=== PATIENT | male | born 1940 | race Caucasian/White ===

== ENCOUNTER 2018-04-13 17:41 | Inpatient (IN) | payer MEDICARE, MEDICAID ==
[2018-04-13] MEDS ORDERED: Sodium Chloride 0.9% 10 ML Syringe FLUSH PRN (17:53)
[2018-04-13] MEDS ORDERED: Sodium Chloride 0.9% 1,000 ML IV ONE (17:54)
[2018-04-13] MEDS ORDERED: cefTRIAXone 1 GM Vial IVPUSH ONE (18:14)
[2018-04-13] MEDS ORDERED: Albuterol/Ipratropium 3.0-0.5 MG/3 ML Neb Soln NEB ONE (18:14)
[2018-04-13 18:48] LABS: CHLORIDE,CL 101 mmol/L (98-107); SODIUM,NA 137 mmol/L (136-145)
--- NOTE | 2018-04-13 18:59 | EDM.PDOC ---
ED HPI GENERAL MEDICAL PROBLEM - General Chief Complaint: Respiratory Problem Stated Complaint: SOB; productive cough; fevers Time Seen by Provider: 04/13/18 17:43 Source of Information: Reports: Patient, Family, RN, RN Notes Reviewed History Limitations: Reports: No Limitations - History of Present Illness INITIAL COMMENTS - FREE TEXT/NARRATIVE: Patient presents the emergency room at [facility] with a one-week history of fevers, chills, shortness of breath, and productive cough. The patient does have a history of pneumonias in the past. The patient's most recent diagnosis was November 2017. The patient states that his symptoms have progressively gotten worse over the past couple of days. The patient states that he brought himself in because he is feeling more weak and more short of breath. No close contacts or family members with similar symptoms. The patient is trying to stay well-hydrated with good by mouth fluid intake. The patient has not tried any [id number] cold and flu medications. The patient denies any focal neurological deficits. The patient denies any abdominal pain. The patient has not had any nausea or vomiting. No diarrhea. The patient denies any chest pain. Onset: Gradual - Related Data Allergies Allergy/AdvReac Type Severity Reaction Status Date / Time No Known Allergies Allergy Verified 04/13/18 18:14 Home Meds: Home Meds Multivitamin [Multivitamins] 1 each PO DAILY 04/13/18 [History] ED ROS GENERAL - Review of Systems Review Of Systems: See Below Constitutional: Reports: Fever, Chills, Weakness, Decreased Appetite HEENT: Reports: No Symptoms Respiratory: Reports: Shortness of Breath, Wheezing, Cough, Sputum Cardiovascular: Denies: Chest Pain, Palpitations GI/Abdominal: Denies: Abdominal Pain, Nausea, Vomiting Skin: Reports: No Symptoms Neurological: Reports: No Symptoms. Denies: Dizziness, Headache ED EXAM, GENERAL - Physical Exam Exam: See Below Exam Limited By: No Limitations General Appearance: Alert, No Apparent Distress Eye Exam: Bilateral Eye: Normal Inspection, PERRL Neck: Supple Respiratory/Chest: No Respiratory Distress, Rhonchi, Wheezing Cardiovascular: Normal Peripheral Pulses, Regular Rate, Rhythm Peripheral Pulses: 2+: Radial (L), Radial (R) GI/Abdominal: Normal Bowel Sounds, Soft, Non-Tender Neurological: Alert, Oriented Skin Exam: Warm, Dry, Intact, Normal Color EKG INTERPRETATION EKG Date: 04/13/18 Time: 17:59 Rhythm: Other Rate (Beats/Min): 120 [place]: Normal P-Wave: Present QRS: Normal ST-T: Normal QT: Normal IL/PQ Interval: 0.17 Comparison: NA - No Prior EKG EKG Interpretation Comments: 1. Sinus Tachycardia 2. Left anterior fascicular block 3. Possible Anterior [place], probably old Course - Orders/Labs/Meds Orders: Active Orders 24 hr Category Date Time Status EKG 12 Lead [EKG Documentation Completion] [RC] STAT Care 04/13/18 17:53 Active RT Aerosol Therapy [RC] ASDIRECTED Care 04/13/18 18:14 Active Chest 2V [CR] Stat Exams 04/13/18 17:53 Taken CULTURE BLOOD [BC] Stat Lab 04/13/18 18:12 Received CULTURE BLOOD [BC] Stat Lab 04/13/18 18:19 Received INFLUENZA A+B AG SCREEN [RM] Stat Lab 04/13/18 18:51 Ordered UA W/MICROSCOPIC [URIN] Stat Lab 04/13/18 17:53 Ordered Sodium Chloride 0.9% [Saline Flush] Med 04/13/18 17:53 Active 10 ml FLUSH ASDIRECTED PRN Blood Culture x2 Reflex Set [OM.PC] Stat Oth 04/13/18 17:52 Ordered Peripheral IV Insertion Adult [OM.PC] Routine Oth 04/13/18 17:53 Ordered Medication Orders Sodium Chloride (Saline Flush) 10 ml FLUSH ASDIRECTED PRN PRN Reason: Keep Vein Open Labs: Laboratory Tests 04/13/18 04/13/18 04/13/18 Range/Units 18:12 18:12 18:12 WBC 17.4 H (4.0-10.0) x10^3/uL RBC 4.81 (4.5-6.0) x10^6/uL Hgb 15.2 (14.0-18.0) g/dL Hct 44.5 (40.0-52.0) % MCV 92.5 (78.0-93.0) fL MCH 31.6 (26.0-32.0) pg MCHC 34.2 (32.0-36.0) g/dL RDW Coeff of Mirna 14.2 (10.0-15.0) % Plt Count 227 (130-400) x10^3/uL Add Manual Diff Yes Neutrophils % (Manual) 89 H (50-80) % Band Neutrophils % 3 (0-6) % Lymphocytes % (Manual) 3 L (25-50) % Monocytes % (Manual) 5 (2-11) % Vacuolated Monocytes 1+ slight H Toxic Granulation Rare Platelet Estimate Adequate Sodium 137 (136-145) mmol/L Potassium 3.7 (3.5-5.1) mmol/L Chloride 101 (98-107) mmol/L Carbon Dioxide 22 (21-32) mmol/L Anion Gap 17.7 (10-20) mmol/L BUN 13 (7-18) mg/dL Creatinine 1.1 (0.70-1.30) mg/dL Est Cr Clr Drug Dosing TNP Estimated GFR (MDRD) > 60 Glucose 153 H (74-106) mg/dL Lactic Acid 1.2 (0.4-2.0) mmol/L Calcium 8.7 (8.5-10.1) mg/dL Corrected Calcium 9.26 (8.5-10.1) mg/dL Total Bilirubin 0.9 (0.2-1.0) mg/dL AST 12 L (15-37) U/L ALT 18 (16-63) U/L Alkaline Phosphatase 109 (46-116) U/L C-Reactive Protein 15.5 H (<=0.9) mg/dL Total Protein 8.5 H (6.4-8.2) g/dL Albumin 3.3 L (3.4-5.0) g/dL Globulin 5.2 Albumin/Globulin Ratio 0.63 Meds: Medications Generic Name Dose Route Start Last Admin Trade Name Freq PRN Reason Stop Dose Admin Sodium Chloride 10 ml 04/13/18 17:53 Saline Flush FLUSH ASDIRECTED PRN Keep Vein Open Discontinued Medications Generic Name Dose Route Start Last Admin Trade Name Freq PRN Reason Stop Dose Admin Albuterol/Ipratropium 3 ml 04/13/18 18:14 04/13/18 18:22 Duoneb 3.0-0.5 Mg/3 Ml NEB 04/13/18 18:15 3 ml ONETIME ONE Administration Ceftriaxone Sodium 1 gm 04/13/18 18:14 04/13/18 18:22 Rocephin IVPUSH 04/13/18 18:15 1 gm ONETIME ONE Administration Sodium Chloride 1,000 mls @ 999 mls/hr 04/13/18 17:54 04/13/18 18:21 Normal Saline IV 04/13/18 18:54 999 mls/hr ONETIME ONE Administration - Radiology Interpretation Free Text/Narrative:: CXR: Right upper lobe infiltrate See scanned report in EMR Departure - Departure Time of Disposition: 19:10 Disposition: Admitted As Inpatient 68 Condition: Good Clinical Impression: Pneumonia Qualifiers: Pneumonia type: due to unspecified organism Laterality: right Lung location: upper lobe of lung Qualified Code(s): J18.1 - Lobar pneumonia, unspecified organism - Discharge Information ED Communication - ED Communication Date/Time Date: 04/13/18 Time Called: 19:02 - Discussed Case With (1) Discussed Case With (1): Admitting Provider Person/s Notified (1): Iram Ruiz - Conversation Summary Admitting Provider Agreed to Patient's Admission: Yes Patient Aware of Amendments fo Care Plan: Yes - Problem List Review Problem List Initiated/Reviewed/Updated: Yes - My Orders Last 24 Hours: My Active Orders 04/13/18 17:52 Blood Culture x2 Reflex Set [OM.PC] Stat 04/13/18 17:53 EKG 12 Lead [EKG Documentation Completion] [RC] STAT Chest 2V [CR] Stat UA W/MICROSCOPIC [URIN] Stat Sodium Chloride 0.9% [Saline Flush] 10 ml FLUSH ASDIRECTED PRN Peripheral IV Insertion Adult [OM.PC] Routine 04/13/18 18:12 CULTURE BLOOD [BC] Stat 04/13/18 18:14 RT Aerosol Therapy [RC] ASDIRECTED 04/13/18 18:19 CULTURE BLOOD [BC] Stat 04/13/18 18:51 INFLUENZA A+B AG SCREEN [RM] Stat - Assessment/Plan Last 24 Hours: My Active Orders 04/13/18 17:52 Blood Culture x2 Reflex Set [OM.PC] Stat 04/13/18 17:53 EKG 12 Lead [EKG Documentation Completion] [RC] STAT Chest 2V [CR] Stat UA W/MICROSCOPIC [URIN] Stat Sodium Chloride 0.9% [Saline Flush] 10 ml FLUSH ASDIRECTED PRN Peripheral IV Insertion Adult [OM.PC] Routine 04/13/18 18:12 CULTURE BLOOD [BC] Stat 04/13/18 18:14 RT Aerosol Therapy [RC] ASDIRECTED 04/13/18 18:19 CULTURE BLOOD [BC] Stat 04/13/18 18:51 INFLUENZA A+B AG SCREEN [RM] Stat Assessment:: RUL infiltrate Plan: Case discussed with Dr. Ruiz. Patient will be admitted acute for RUL infiltrate. Patient signed out to Dr. Ruiz.
[2018-04-13] MEDS ORDERED: Albuterol/Ipratropium 3.0-0.5 MG/3 ML Neb Soln NEB PRN (20:21)
[2018-04-13] MEDS ORDERED: Acetaminophen 325 MG Tab PO PRN (20:21)
[2018-04-13] MEDS ORDERED: Lactated Ringers 1,000 ML IV SCH (20:30)
[2018-04-13] MEDS ORDERED: cefTRIAXone 1 GM Vial IVPUSH SCH (20:30)
[2018-04-13] MEDS ORDERED: Benzonatate 100 MG Cap PO PRN (20:34)
[2018-04-13] MEDS ORDERED: guaiFENesin 600 MG Tab.ER PO PRN (20:35)
[2018-04-13] MEDS ORDERED: Sodium Chloride 0.9% 1,000 ML IV SCH ×2 (20:45→21:04)
[2018-04-13] MEDS ORDERED: Sodium Chloride 0.9% 500 ML IV SCH (20:45)
[2018-04-13] MEDS: Enoxaparin 40 MG/0.4 ML Syringe SUBCUT SCH (21:09)
[2018-04-13] MEDS: Azithromycin 250 MG Tab PO SCH (21:09)
[2018-04-13] MEDS: Sodium Chloride 0.9% 1,000 ML IV SCH (21:13)
[2018-04-13] MEDS: Magnesium Oxide 400 MG Tab PO SCH (22:51)
--- NOTE | 2018-04-14 04:18 | HP ---
CHIEF COMPLAINT: Cough. HISTORY OF PRESENT ILLNESS: The patient is a 77-year-old male, who presented to the emergency room. He has been feeling ill for the past few weeks, just not much energy. He had a productive cough several days ago, but now it started to be not as productive, but he started to have more wheezing in his chest. He had been taking some Mucinex for coughing at home. Cough had been productive, but now less productive. He has not been eating as much. He actually did start to feel somewhat confused due to probably not eating as well. The patient does not have a history of any chronic health problems right now as he is not on any chronic prescription medications. He has seen KAYY Parnell, in the clinic for health care. The patient had had a bout with influenza in November that had resolved, but otherwise he prides himself on feeling quite healthy generally. MEDICATIONS: He is currently on Naprosyn 220 mg 1 pill twice a day as needed; low-dose aspirin 1 pill daily; multivitamin 1 pill a day; vitamin C 250 mg 1 pill daily; beta-carotene, I believe 1000 mg daily; and Tessalon 100 mg 1 pill every 4 hours as needed for cough. ALLERGIES: None known. PAST MEDICAL HISTORY: He has had laryngeal cancer in about 1989. He had had elevated blood pressure without diagnosis of hypertension. PAST SURGICAL HISTORY: He had cataract surgery in 2011 and 2013. FAMILY MEDICAL HISTORY: His father had heart problems. Mother in a motor vehicle accident. Siblings have had many types of cancer, prostate cancer as well as metastatic cancer. SOCIAL HISTORY: He is in 2017. His had had metastatic breast cancer. He is currently retired. 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 He likes to stay active with still doing tinkering and yard work. He does not currently smoke. He quit smoking about 20 years ago. Prior to that, he had smoked a pack a day of cigarettes. Alcohol use, he does not consume since getting . REVIEW OF SYSTEMS: Generally fairly healthy. He has not had any weight loss. No change in any skin lesions. No headaches. No double or blurry vision. Has felt weak. Did get confused recently. Not much appetite. No diarrhea. No vomiting. No problems with urination. No burning with urination. No incontinence. No one- sided weakness or numbness. No bruising. No enlarged lymph glands. No problems with bleeding. OBJECTIVE: Vital Signs: The patient's temperature is 38.7, pulse is 126, blood pressure is 127/85, respiratory rate 22, and oxygen level on room air is 92%. Skin: [place], warm, and dry. HEENT: His head is atraumatic. Pupils are equal and reactive to light. Pharynx has slightly dry mucous membranes. Neck: No anterior cervical lymphadenopathy or thyromegaly. No carotid bruits. Heart: Tachycardic. Lungs: Revealed some inspiratory wheezes on bases bilaterally. He is able to talk without becoming short of breath. Abdomen: Bowel sounds present. Soft, nontender. No hepatosplenomegaly. Rectal and Genital: Deferred. Extremities: No edema. Neurologic: He is weak systemically, but is able to lift his hands above his head symmetrically. Cranial nerves 2 through 12 are intact. He does wear glasses. He is oriented x3. Psych: His mood appears happy. LABORATORY DATA: Work [place], his white blood cell count is elevated at 17.4 with 89 segs, 3 bands, 3 lymphocytes, 5 monocytes; hemoglobin is 15.2; platelets are 222. Sodium is 137, potassium 3.7, creatinine 1.1, BUN 13, GFR greater than 60, glucose 153. Lactic acid was 1.2. CRP was 15.5. His AST 12, ALT 18, and albumin 3.3. Influenza was negative. Chest x-ray shows right upper lobe infiltrate with flattening of the diaphragms with increased AP diameter, preliminary report. Radiologist read that he has right upper lobe infiltrate; bilateral hilar prominence, appears chronic; moderate chronic hyperinflation was noted. EKG shows sinus tachycardia, rate 120; left anterior fascicular block; possible anterior infarct, probably old; abnormal EKG. It is noted that he did have a previous left bundle-branch block in 2011. The patient when seen in the emergency room was given 1 g of IV Rocephin, was given some IV fluids, given a DuoNeb. He started to feel much better immediately; however, his pulse did still continue to stay tachycardic. IMPRESSION: 1. Right upper lobe pneumonia, community acquired. 2. Tachycardia, multifactorial. Most likely due to dehydration, but probably fever. 3. Probable underlying chronic obstructive pulmonary disease. 4. History of throat cancer. 5. History of elevated blood pressure, but not considered hypertension. 6. Weakness. 7. Confusion, which is clearing. PLAN: The patient will be admitted to Acute Care. He will be placed on continued Rocephin use, as well as we will add Zithromax. The patient will receive Lovenox for DVT prophylaxis. We will give IV hydration for fluid resuscitation. We will monitor his heart with telemetry. We will check serial troponins on him as well as serial lactic acids on him. The patient is code level 1 status. This was discussed with the patient. The patient will receive some Mucinex p.r.n. for mucolytics as well as the DuoNeb treatments, encouraged use of those. We will have Physical Therapy assess the patient; however, they are not available until the next 3 days. I do anticipate the patient to hopefully just a 2 to 3 days acute care and then be able to be returned to his home environment. The patient, however, has not had a complete physical for some time. Also noted vaccination status; the patient has not had Pneumovax vaccination of Prevnar 13. He has not had any colonoscopy checking. He has not had a lipid screen. He is overdue for tetanus booster. He does need to have scoring for lung screen evaluation. The patient will follow up with KAYY Parnell, in the clinic upon discharge from the hospital. GM04/13/2018 20:52:37 MODL: 04/14/2018 03:40:45 /[id number]
[2018-04-14] MEDS: Sodium Chloride 0.9% 1,000 ML IV SCH (05:28)
[2018-04-14 08:34] LABS: CHLORIDE,CL 106 mmol/L (98-107); SODIUM,NA 141 mmol/L (136-145)
[2018-04-14] MEDS: Aspirin 81 MG Tab.Chew PO SCH (08:54)
[2018-04-14] MEDS: Multivitamin, Stress Formula with Zinc Tab PO SCH (08:55)
[2018-04-14] MEDS: Ascorbic Acid 500 MG Tab PO SCH (08:55)
[2018-04-14] MEDS: Azithromycin 250 MG Tab PO SCH (08:56)
[2018-04-14] MEDS: Magnesium Oxide 400 MG Tab PO SCH (08:56)
[2018-04-14] MEDS ORDERED: Sodium Chloride 0.9% 10 ML Syringe FLUSH PRN (09:28)
--- NOTE | 2018-04-14 10:00 | PN ---
Progress Note for GAUDENCIO PAIZ Date: 04/14/2018 Room #: VM.204 SUBJECTIVE: The patient is feeling better. He has had little bit of productive cough. He has had a cough prior to coming in the morning. He has also had a rash on his left foot that he forgot about last night. He denies any chest pain. It was noted on his lab work that was done last evening that troponin that was checked did come back elevated, so then we ran a troponin on his ER lab work and that also was elevated, which may be more likely due to his tachycardia, not really cardiac problems. The patient's appetite is feeling better. He is feeling more mentally sharp. OBJECTIVE: Vital Signs: His weight is 101.5, which is same from yesterday. Temperature is 37.0, which has come down. His pulse is down to 85, blood pressure is 114/77, respiratory rate 19, and sats are 97 on 3 L. General: Objectively, he appears alert and calm. Skin: On the dorsum of his left foot, he has a scaly type lesion, 1 cm in size. Heart: Regular rate and rhythm. Lungs: Do reveal some stray wheezes on bases. Abdomen: Obese, soft. Lower Extremities: No edema. LABORATORY DATA: Labs today shows his white blood cell count has improved to 14.0, hemoglobin 13.1, platelets 176, with 77 segs, and 3 bands. Sodium 141, potassium same at 3.7, creatinine 1.1. GFR greater than 60, glucose 103. Lactic acid came back normal as well at 0.8. Magnesium was low yesterday and repeat check level 1.6. LFTs stayed normal. Troponin this morning 0.063. Urinalysis came back normal. IMPRESSION: 1. Right upper lobe pneumonia. 2. Chronic obstructive pulmonary disease exacerbation. 3. Hypokalemia. 4. Tachycardia secondary to dehydration. 5. Elevated troponin, suspect secondary to tachycardia. 6. Left anterior fascicular block. PLAN: His EKG this morning does look better with sinus rhythm with sinus arrhythmia. We will saline lock his IV fluids for right now. We will place him on scheduled Combivent Respimat inhaler. He can have p.r.n. neb treatments. We will check peak flow meter testing on the patient. He may need diuretic possibly. We will continue the Rocephin, as well as the Zithromax for him, and we will try to get him weaned off oxygen. GM04/14/2018 09:37:55 MODL: 04/14/2018 09:52:59 /[id number]
[2018-04-14] MEDS ORDERED: Albuterol 0.083% 2.5 MG/3 ML Neb Soln NEB PRN (10:18)
[2018-04-14] MEDS: Enoxaparin 40 MG/0.4 ML Syringe SUBCUT SCH (11:31)
[2018-04-14] MEDS: Terbinafine 1% Crm 30 GM Tube TOP SCH (11:35)
[2018-04-14] MEDS: Albuterol/Ipratropium 3.0-0.5 MG/3 ML Neb Soln INH SCH ×3 (11:36→19:49)
[2018-04-14] MEDS ORDERED: cefTRIAXone 1 GM Vial IVPUSH SCH (17:00)
[2018-04-14] MEDS ORDERED: Enoxaparin 40 MG/0.4 ML Syringe SUBCUT SCH (20:00)
[2018-04-15] MEDS: Albuterol/Ipratropium 3.0-0.5 MG/3 ML Neb Soln INH SCH ×2 (07:12→12:45)
[2018-04-15 08:16] LABS: CHLORIDE,CL 106 mmol/L (98-107); SODIUM,NA 141 mmol/L (136-145)
[2018-04-15] MEDS: Terbinafine 1% Crm 30 GM Tube TOP SCH (08:50)
[2018-04-15] MEDS: Ascorbic Acid 500 MG Tab PO SCH (08:50)
[2018-04-15] MEDS: Aspirin 81 MG Tab.Chew PO SCH (08:50)
[2018-04-15] MEDS: Multivitamin, Stress Formula with Zinc Tab PO SCH (08:54)
[2018-04-15] MEDS: Magnesium Oxide 400 MG Tab PO SCH (08:54)
[2018-04-15] MEDS: Azithromycin 250 MG Tab PO SCH (08:54)
[2018-04-15] MEDS ORDERED: Albuterol/Ipratropium 3.0-0.5 MG/3 ML Neb Soln INH SCH (11:10)
[2018-04-15] MEDS ORDERED: Cefdinir 300 MG Cap PO SCH (11:15)
--- NOTE | 2018-04-15 11:27 | PN ---
Progress Note for GAUDENCIO PAIZ Date: 04/15/2018 Room #: VM.204 SUBJECTIVE: The patient is feeling better today. He has been able to go without oxygen. His pulse has been in the 80s. The patient otherwise does feel that he is able to go home. OBJECTIVE: Vital Signs: His temperature is 37.2, weight is 100.9, which is down 0.4 pounds from a 0.4 kg on admission; blood pressure is 129/77; respiratory rate 18; sats are 94% on room air. General: Objectively, he is appearing much better. Heart: Regular rate and rhythm. Lungs: Do have some fine inspiratory wheezes on bases. Abdomen: Soft. Extremities: No edema. Neurologic: He is alert, pleasant to visit with. LABORATORY STUDIES: His sputum culture is showing alpha-hemolytic strep. White blood cell count has improved to 11.7, hemoglobin is 13.5, platelets are 211, with 79 segs, 6 bands, 13 lymphocytes. Sodium is 141, potassium 3.6, creatinine 0.9, GFR greater than 60. Magnesium is up to 1.9. CRP has gone up to 18.1. IMPRESSION: 1. Alpha-hemolytic streptococcal pneumonia. 2. Chronic obstructive pulmonary disease exacerbation. 3. Hypoxemia, improved. 4. Tachycardia, improved. 5. Hypokalemia, improved. 6. Hypomagnesemia, improved. 7. Elevated troponins, which has resolved. PLAN: We will switch him over from nebulizer to an MDI inhaler. We will start him on some oral steroids. We will switch him from Rocephin to Omnicef. We will discharge home later today. His daughter is present in the room and does feel comfortable with him going. He will follow up with Jazz Do in the clinic in a week's time. GM04/15/2018 11:08:27 MODL: 04/15/2018 11:20:56 /[id number]
[2018-04-15] MEDS ORDERED: predniSONE 20 MG Tab PO ONE (12:57)
--- NOTE | 2018-04-15 13:12 | DISCH ---
PRIMARY DIAGNOSES: 1. Right upper lobe streptococcal pneumonia. 2. Chronic obstructive pulmonary disease exacerbation. 3. Dehydration, mild. 4. Hypomagnesemia. 5. Confusion, which has improved. 6. Elevated troponin, most likely secondary to tachycardia. He is not felt to be in non-STEMI. 7. Tinea pedis. 8. Left anterior fascicular block. SUMMARY OF ADMIT HISTORY AND PHYSICAL: The patient is a 77-year-old male, who presents to the emergency room with shortness of breath, productive cough, and fevers. He has been feeling ill for the past several days. He had actually felt confused at home. He has had problems with increasing shortness of breath, was not eating very well. When he was seen in the emergency room, it was noted that his pulse was up to the 130s. EKG showed left anterior fascicular block, possible anterior [place]. Chest x-ray showed right upper lobe pneumonia. White blood cell count was 17.4, hemoglobin 15.2, and platelets 227, 89 segs, and 3 bands. Sodium 137, potassium 3.7, creatinine 1.1. GFR greater than 60. Lactic acid was 1.2. CRP was 15.5. The patient was given DuoNeb in the emergency room, as well as Rocephin. His initial vital signs in the emergency room had shown that his temperature was 38.7, pulse was 128, blood pressure 127/85, respiratory rate 22, sats on oxygen were 92%, but had been borderline at 90%. SUMMARY OF HOSPITAL COURSE: Sputum cultures were obtained, as well as blood cultures were obtained. He was given IV hydration. He was monitored on telemetry. His troponin had been checked when the next lactic acid level was checked, which lactic acid came back normal at 1.1, but troponin was elevated at 0.92, so therefore, troponin was run on initial blood work drawn in the emergency room was 0.107. His magnesium was 1.6 on admit. Urinalysis came back normal. To note, the patient's pulse did come down with IV hydration. He was placed on oral magnesium. He was placed on DuoNeb, which did help his breathing quite significantly. Also, his Mucinex was increased to twice a day. A followup chest x-ray was done on 04/14, as he was fairly wheezy on the inferior aspect of it and that did come back as showing COPD, no worsening infiltrate. By lab on 04/14/2018, troponin was 0.063, which has improved. His white blood cell count has improved to 14.0, hemoglobin was 13.1. The patient was up ambulating. He had no further problems with tachycardia. By 04/15/2018, his white blood cell count was down to 11.7, hemoglobin 13.5, with platelets 311. Sodium was 141, potassium 3.6, creatinine 0.9, GFR was greater than 60. His magnesium was up to 1.9. CRP had improved to 11.1. ProBNP had been checked on 04/13/2018, and was 369. To note, the patient's foot had actually appeared to be tinea pedis present, so Lamisil was started on him for that. The patient was switched from albuterol neb to Combivent Respimat inhaler prior to discharge. He was also started on oral prednisone and switched from IV Rocephin to oral Omnicef. He was kept on Zithromax. He was felt stable to be discharged home. He was also mentally alert and clear at that time as well. DISCHARGE MEDICATIONS: His medications at the time of discharge will be, multivitamin 1 pill daily, aspirin 81 mg, 1 pill daily, Naprosyn 220, 1 pill twice a day as needed, beta-carotene 10,000 units daily, Tessalon [place] 100 mg, 1 pill every 4 hours as needed for cough, vitamin C 250 mg, 1 pill daily, Tylenol 650 q.4 hours p.r.n., Combivent Respimat 1 puff, 4 times a day, Zithromax 500 mg daily for 5 more days, Omnicef 300 mg, 1 pill twice a day for a total of 7 more days, Mucinex 600 mg, 1 pill twice a day as needed for mucus, magnesium oxide 400 mg, 1 pill daily, prednisone 20 mg, 1 pill daily, Lamisil topically once a day. FOLLOWUP: The patient is to follow up with Jazz Do PA-C in the clinic for re-evaluation. DISCHARGE INSTRUCTIONS: Will need recheck of his pneumonia, as well as recheck of his EKG with heart status with troponin had been elevated, as well as magnesium will need to be rechecked. The patient also may need formal pulmonary function test done to also document about COPD. The patient had been seen by respiratory therapy and he did have noted use of incentive spirometer prior to discharge. Peak flow meter testing was not done while he was hospitalized. He was felt to be able to go home without oxygen. ACTIVITY: As tolerated. DIET: Regular. GM04/15/2018 11:31:23 MODL: 04/15/2018 13:06:27 /[id number]
[2018-04-16] MEDS ORDERED: predniSONE 20 MG Tab PO SCH (08:00)
== END 2018-04-15 13:35 | disposition home or self-care (01) | DRG 194 ==
LOC: VM.ED 17:41 → VM.MS 19:09
PROVIDERS: ADMIT Family Medicine; ATTEND Family Medicine
DX: J18.1 Lobar pneumonia, unspecified organism (principal); R06.02 Shortness of breath; R05 Cough; R50.9 Fever, unspecified; R53.1 Weakness; R06.2 Wheezing; R09.3 Abnormal sputum; J15.4 Pneumonia due to other streptococci; J44.0 Chronic obstructive pulmonary disease with (acute) lower respiratory infection; J44.1 Chronic obstructive pulmonary disease with (acute) exacerbation; E86.0 Dehydration; E83.42 Hypomagnesemia; R41.0 Disorientation, unspecified; R74.8 Abnormal levels of other serum enzymes; B35.3 Tinea pedis; I44.4 Left anterior fascicular block; R03.0 Elevated blood-pressure reading, without diagnosis of hypertension; R09.02 Hypoxemia; E87.6 Hypokalemia; I25.2 Old myocardial infarction; Z87.891 Personal history of nicotine dependence; Z85.21 Personal history of malignant neoplasm of larynx
CPT/HCPCS: 36415; 71046; 80053; 83605; 84484; 85025; 86140; 87040 ×2; 93005; 94640; 96361; 96374; 99285; J0696; J7030; 80048; 81001; 83735; 83880; 85007; 85027; 87070; 87077; 87205; 87804; 87804-59; 94760; A9270-GY; J1650